=== PATIENT | female | born 1995 | race Caucasian/White ===

== ENCOUNTER 2024-12-22 14:20 | Outpatient (CLI) | payer SELFPAY ==
[2024-12-22 14:20] VITALS: BMI 26.6
--- NOTE | 2024-12-22 14:37 | USR_ITS ---
PROCEDURE INFORMATION: Exam: US After First Trimester, Transabdominal Exam date and time: 12/22/2024 3:25 PM Age: 29 years old Clinical indication: Screening exam; Routine US, uterus; Additional info: Vaginal bleed, unknown gestational age, placenta location, cherelle, anatomy scan LABS AND CLINICAL REPORTS: Gestational age (Established): 29 w 4 d Estimated due date (Established): 03/05/2025 TECHNIQUE: Imaging protocol: Real-time transabdominal obstetrical ultrasound of the maternal pelvis and a second or third trimester with image documentation. COMPARISON: No relevant prior studies available. FINDINGS: Gestation: Single live intrauterine . heart rate: 144 bpm presentation and position: Breech presentation. Placenta: The placenta is anterior in location and appears to cover the internal cervical os compatible with placenta previa. Amniotic fluid (Qualitative): Amniotic fluid is normal for gestational age. Amniotic fluid index: CHERELLE is 16.95 cm. ANATOMY: midline falx: Unremarkable. cerebellum: Unremarkable. lateral ventricles: Unremarkable. cisterna magna: Unremarkable. choroid plexus: Unremarkable. face: Visualized facial structures appear unremarkable. The profile could not be obtained on this exam. heart four-chamber view, heart size and position: Unremarkable. heart right ventricular outflow tract: Unremarkable. heart left ventricular outflow tract: Unremarkable. kidneys: Unremarkable. stomach: Unremarkable. urinary bladder: Unremarkable. spine: The visualized spine is unremarkable. Umbilical cord and insertion: Unremarkable. upper limbs: Unremarkable as visualized. lower limbs: Unremarkable as visualized. external genitalia: Unremarkable. BIOMETRY: Gestational age (AUA): 30 weeks 1 day Estimated due date (AUA): March 01, 2025 Biparietal diameter (BPD): 7.59 cm. EGA (BPD) is 30 w 3 d. 65.9 % percentile Head circumference (HC): 27.4 cm. EGA (HC) is 29 w 6 d. 25.4 % percentile Abdominal circumference (AC): 25.5 cm. EGA 29 weeks 5 days. 46.4 % percentile Femur length (FL): 5.77 cm. EGA (FL) is 30 w 1 d. 53.5 % percentile FL/HC: 21.06. (Normal range: 19.21 - 21.39) FL/BPD: 76.02. (Normal range: 71 - 87) MATERNAL: Uterus: Unremarkable. Cervix: Cervical length measures 3.5 cm. Right ovary/adnexa: Obscured by lack of adequate acoustic window. Left ovary/adnexa: Obscured by lack of adequate acoustic window. Intraperitoneal space: No intraperitoneal free fluid. US/US OB >= 14 weeks fetus [id number] IMPRESSION: 1. Single live intrauterine with a mean sonographic age of 30 weeks 1 day and estimated date of delivery of March 01, 2025. This corresponds to a clinical age of 29 weeks 4 days. 2. Breech presentation. 3. Placenta previa. 4. Follow-up ultrasound is recommended prior to delivery to evaluate position and resolution of placenta previa.
[2024-12-22 14:48] VITALS: BP 106/79; PULSE 110
[2024-12-22 15:08] VITALS: BP 114/78; PULSE 126
[2024-12-22 16:46] LABS: Glucose Tolerance 1 Hour Gest 233 mg/dL (70-139)
[2024-12-22 16:49] LABS: Amphetamines Screen Urine Negative (Negative); Barbiturates Screen Urine Negative (Negative); Benzodiazepines Screen Urine Negative (Negative); Cocaine Screen Urine Negative (Negative); HIV 1 & 2 Antibody Non-Reactive (Non-Reactiv); HIV 1 & 2 Antigen Non-Reactive (Non-Reactiv); Opiate Screen Urine Negative (Negative); PCP Screen Urine Negative (Negative); THC Screen Urine Negative (Negative)
[2024-12-22 16:56] LABS: Hepatitis B Surface Antigen Non-Reactive (Nonreactive)
--- NOTE | 2024-12-22 16:58 | P.TNLD_ITS ---
OB L&D Triage Visit Information: Date of evaluation: 12/22/24 Comments/Additional reason(s) for visit: 29-year-old female G9, P6 seen on labor and delivery with complaints of vaginal bleeding this a.m. after sexual intercourse last night. Patient states that she wiped and saw blood. She denies heavy vaginal bleeding like a menses. She admits to good movement. Patient has received no care to date. LMP?negative patient is currently breast-feeding her [id number] baby. Patient was seen earlier by Dr. Julio, a sterile speculum was done with no active bleeding noted. OB ultrasound Clinical age 29.4 weeks gestation with TRINA 03/05/2025. Sonographic or age 30.1-week gestation with TRINA 03/01/2025 Complete placenta previa, CHERELLE 16.95 cm, breech presentation. Discussed with patient in great detail the high risk nature of her with Complete Placenta Previa. Any vaginal bleeding is considered an emergency and patient is to present to labor and delivery for evaluation. Patient is counseled against any sexual intercourse which could cause vaginal bleeding from the placenta previa and increase the risk of placental abruption. Placental abruption is an obstetrical emergency which could result in Severe Hemorrhage and loss of life of both p atient and the baby. care should start immediately, we will make her an appointment for next week to be seen by Dr. Julio to again review Placenta Previa, her lab and follow-up ultrasound visits. Also reviewed with the patient that if the Placenta Previa does not resolve her delivery will need to be primary section. I discussed the severe hemorrhage that would occur if vaginal delivery were attempted. The risk of severe hemorrhage and loss of life were both reviewed. Patient verbalizes understanding. Patient's glucose?233, I reviewed with patient need for fasting lab, to rule out gestational diabetes... PMH?negative Surgical history?none Social history?patient denies smoking, alcohol, street drugs Patient is a [id number] mom. Allergies?none Current medication-liver supplements, iron Evaluation: Baseline heart rate: 130 Cervical dilation (cm): 0 Laboratory results: Laboratory Tests 12/22/24 16:20 Gest Glucose Kenisha ance 233 H Urine Opiates Scre en Negative Ur Barbiturates Sc reen Negative Ur Phencyclidine S crn Negative Ur Amphetamines Sc reen Negative U Benzodiazepines Scrn Negative Urine Cocaine Scre en Negative U Marijuana (THC) Screen Negative Hep Bs Antigen Non-reactive HIV 1&2 Ab & HIV 1 Ag Non-reactive HIV 1&2 Antibody Non-reactive Vital signs: Vital Signs - 24 hr 12/22/24 14:48 12/22/24 15:08 Pulse Rate 110 H 126 H Blood Pressure 106/79 114/78 Final Diagnosis Final Diagnosis (1) 30 weeks gestation of : Plan: Patient to follow-up with Dr. Julio at the clinic fasting due to blood sugar 233 today. Status: Acute Code(s): Z3A.30 - 30 weeks gestation of (2) No care in current : Status: Acute Code(s): O09.30 - Supervision of with insufficient care, unspecified trimester (3) Complete placenta previa nos or without hemorrhage, third trimester: Plan: Patient to refrain from any sexual intercourse or strenuous activity.. Any vaginal bleeding or pelvic pain or uterine contractions patient is to come to labor and delivery for evaluation... Status: Acute Code(s): O44.03 - Complete placenta previa NOS or without hemorrhage, third trimester Coding Level of Care Code Acute Code for Chg Fwd Diagnoses 30 weeks gestation of Z3A.30 No care in current O09.30 Complete placenta previa nos or without hemorrhage, third trimester O44.03
[2024-12-22 17:05] LABS: Rapid Plasma Reagin Syphilis Nonreactive (Nonreactive)
[2024-12-22 18:21] LABS: Chlamydia Trachomatis NOT DETECTED; Neisseria Gonorrhea NOT DETECTED
== END 2024-12-22 17:05 | disposition home or self-care (01) ==
LOC: OPOB 14:30 → OBGYN 14:32
PROVIDERS: PCP Family Medicine; Visit Provider Obstetrics & Gynecology
DX: O44.03 Complete placenta previa NOS or without hemorrhage, third trimester (principal); Z3A.30 30 weeks gestation of pregnancy; O09.33 Supervision of pregnancy with insufficient antenatal care, third trimester
CPT/HCPCS: 36415; 76805; 80306; 82950; 86592; 86850; 86900; 87340; 87491; 87591; 87806; 99211

== ENCOUNTER 2025-07-27 06:07 | Emergency (ER) | payer SELFPAY ==
[2025-07-27 06:12] VITALS: BP 119/88; PULSE 94; RESP 16; TEMP 36.9; O2SAT 100; BMI 23.8
[2025-07-27 07:04] LABS: Hematocrit 37.4 % (36-47); Hemoglobin 12.70 g/dL (11.27-16.99); Mean Corpuscular HGB Conc 34.0 g/dL (30-55); Mean Corpuscular Hemoglobin 28.3 pg (27-33); Mean Corpuscular Volume 83.5 fl (85-98); Nucleated Red Blood Cells % 0 %; Platelet Count 171 10^3/cmm (157-399); Red Blood Count 4.48 10^6/uL (3.85-5.65); White Blood Count 7.24 10^3/uL (3.29-11.43)
--- NOTE | 2025-07-27 07:05 | W.ED.GENADLT ---
HPI - General Adult General: Chief complaint: General Medical Stated complaint: pain on Time Seen by Provider: 07/27/25 06:52 History of Present Illness: 30-year-old female presents emergency room complaining of right breast pain. Subjective fever at home. Patient is breast-feeding has been breast-feeding for the last 6 months. Last couple of days she has had increasing tenderness pain exquisite pain with attempts to breast-feed or expressed. Related Data Previous Rx's ?Medication ?Instructions ?Recorded cephalexin 500 mg capsule 500 mg PO QID 7 days #28 caps 07/27/25 diclofenac sodium 75 mg 75 mg PO Q12H PRN pain #20 tabs 07/27/25 tablet,delayed release hydrocodone 5 mg-acetaminophen 325 1 tab PO Q6H PRN pain #10 tabs 07/27/25 mg tablet Allergies Allergy/AdvReac Type Severity Reaction Status Date / Time No Known Allergies Allergy Verified 12/29/24 10:49 Review of Systems Const: Reports: fever(s) and chills Skin/Breast: Reports: erythema, skin tenderness, breast tenderness, breast pain and breast swelling PFSH ED PFSH: Family History Father Diabetes Denies family history of Ovarian cancer Heart disease Breast cancer Hypertension Uterine cancer Thyroid disease Stroke Social History Smoking and tobacco/nicotine status: never used tobacco/nicotine Physical Exam Chest: OTHER: Examination of right breast with nurse present. Mild lymphatic streaking at approximately 11 o'clock position breast is swollen and tender. There really in the nipple did not show any drainage or signs of abscess like palpation but is firm and exquisitely tender to touch without fluctuant area. No axillary lymphadenopathy noted Course Vital Signs: Vital signs: Vital Signs Temperature 98.5 F 07/27/25 06:12 Pulse Rate 74 07/27/25 07:31 Respiratory Rate 16 07/27/25 06:12 Blood Pressure 111/80 07/27/25 07:31 Pulse Oximetry 98 07/27/25 07:31 Oxygen Delivery Me thod Room Air 07/27/25 06:12 MDM - General Adult Medical Decision Making Mastitis started on cephalexin 500 4 times daily for 7 days. Diclofenac for pain apply moist heat to the area. Discussed the patient's important to continue breast-feeding or expressing to prevent engorgement which will worsen the mastitis. Gave hydrocodone for severe pain. Medical Records I reviewed the patient's medical records. Lab Data I reviewed the patient's lab results. 07/27/25 07:00 Laboratory Results WBC 7.24 10^3/uL (3.29-11.43) 07/27/25 07:00 RBC 4.48 10^6/uL (3.85-5.65) 07/27/25 07:00 Hgb 12.70 g/dL (11.27-16.99) 07/27/25 07:00 Hct 37.4 % (36-47) 07/27/25 07:00 MCV 83.5 fl (85-98) L 07/27/25 07:00 MCH 28.3 pg (27-33) 07/27/25 07:00 MCHC 34.0 g/dL (30-55) 07/27/25 07:00 RDW 13.3 % (12.1-15.1) 07/27/25 07:00 Plt Count 171 10^3/cmm (157-399) 07/27/25 07:00 MPV 8.5 fL (7.4-10.4) 07/27/25 07:00 Neut % (Auto) 77.0 % 07/27/25 07:00 Lymph % (Auto) 13.3 % 07/27/25 07:00 [place] % (Auto) 7.0 % 07/27/25 07:00 Eos % (Auto) 1.8 % 07/27/25 07:00 Baso % (Auto) 0.8 % 07/27/25 07:00 Neut # (Auto) 5.57 10^3/uL (1.8-7.7) 07/27/25 07:00 Lymph # (Auto) 1.0 10^3/uL (0.8-4.8) 07/27/25 07:00 [place] # (Auto) 0.5 10^3/uL (0.2-0.9) 07/27/25 07:00 Eos # (Auto) 0.1 10^3/uL (0.0-0.8) 07/27/25 07:00 Baso # (Auto) 0.1 10^3/uL (0.0-0.1) 07/27/25 07:00 Nucleated RBC % (auto) 0 % 07/27/25 07:00 Nucleated RBCs # 0.0 /100WBC 07/27/25 07:00 No radiology studies performed this visit Discharge Plan Discharge Patient Disposition: Home Clinical Impression: Mastitis associated with Condition: Stable Prescriptions: New hydrocodone-acetaminophen 5-325 mg tablet 1 tab PO Q6H PRN (Reason: pain) Qty: 10 0RF diclofenac sodium 75 mg tablet,delayed release (DR/EC) 75 mg PO Q12H PRN (Reason: pain) Qty: 20 0RF cephalexin 500 mg capsule 500 mg PO QID 7 Days Qty: 28 0RF Discharge Orders: Discharge ED (Routine); Ordered 07/27/25 Ordered By: Shay Thomson Referrals: Sweta Ordoñez MD [Primary Care Provider, Family Practice] Discharge Diet: Usual diet Discharge Activity: Increase activity as tolerated Patient Instructions: Mastitis (ED), Opioid Safety, Pain Management, Patient Portal & [place] Instructions Activity Restrictions/Additional Instructions: [facility] for your healthcare needs today. It is very important that you follow up as instructed or that you return to the Emergency Department should you have concerns or if your condition changes or worsens in any way. Emergency department visits are focused on emergent conditions, in some cases you may require further evaluation on an outpatient basis. You were seen in the emergency room with an episode of mastitis. Recommend starting oral antibiotics 1 pill 4 times a day for 7 days. You can apply moist heat to the affected breast. He also should continue to either breast-feed or express breastmilk to prevent engorgement of the breast. You are given a prescription for diclofenac to use for moderate pain and hydrocodone to use for more severe pain. If you develop fever return to the emergency room. (Please note that included in your discharge packet is information concerning opioid safety and pain management. This information is given to all patients were discharged from the ER regardless of their discharge diagnosis or the medicines they usually take or are prescribed.) Print Language: Icelandic Coding Level of Care Code ED [place] [facility] for Pola Harper
[2025-07-27 07:31] VITALS: BP 111/80; PULSE 74; O2SAT 98
== END 2025-07-27 07:32 | disposition home or self-care (01) ==
PROVIDERS: Emergency Provider Family Medicine; PCP Family Medicine
DX: N61.0 Mastitis without abscess (principal)
CPT/HCPCS: 85025; 99283